=== PATIENT | female | born 1960 | race Caucasian/White ===

== ENCOUNTER 2016-04-23 07:49 | Emergency (ER) | payer OTHER ==
[2016-04-23 08:01] VITALS: BP 184/97
--- NOTE | 2016-04-23 08:21 | ERNOTE ---
Date of Service: 04/23/16 Time Seen by Provider: 04/23/16 08:08 Stated Complaint: PNEUMONIA Presenting Symptoms:: cough Source: patient Exam Limitations: no limitations Immunizations: IMMUNIZATION HX Immunizations Up to Date Yes History of Influenza Vaccine Yes Hx Pneumococcal Vaccination Yes Allergies/Adverse Reactions: Allergies amoxicillin Allergy (Intermediate, Verified 04/23/16 08:02) Hives Sulfa (Sulfonamide Antibiotics) Allergy (Intermediate, Verified 04/23/16 08:02) Hives acetaminophen [From Vicodin] Allergy (Mild, Verified 04/23/16 08:02) Hives codeine Allergy (Mild, Verified 04/23/16 08:02) RASH, NAUSEA hydrocodone bitartrate [From Vicodin] Allergy (Mild, Verified 04/23/16 08:02) Hives pseudoephedrine Allergy (Mild, Verified 04/23/16 08:02) Hives morphine Adverse Reaction (Mild, Verified 04/23/16 08:02) SEVERE VOMITING Opioids - Morphine Analogues Adverse Reaction (Mild, Verified 04/23/16 08:02) Vomiting Home Medications: HOME MEDICATIONS Azithromycin [Zithromax] 250 mg PO DAILY #6 tablet 04/23/16 [Last Taken Unknown] predniSONE [Prednisone] 3 tab PO DAILY #9 tab 04/23/16 [Last Taken Unknown] - History of Present Ilness Narrative: 55-year-old white female who is a smoker and has a history of asthma presents with cough. Patient has had a cough for a couple weeks. She has some occasional sputum production. Some mild shortness of breath. Increased wheezing. No fever chills. No chest pain. She's had some runny nose and congestion. Symptoms are worsening Review of Systems - Review of Systems Constitutional: Present: no symptoms reported, See HPI. Absent: weight loss EYE: Present: no symptoms reported ENT: Present: nose congestion, nasal drainage Respiratory: Present: See HPI Cardiology: Absent: chest pain, palpitations, edema Gastrointestinal/Abdominal: Present: no symptoms reported. Absent: nausea, vomiting Genitourinary: Present: no symptoms reported Musculoskeletal: Present: no symptoms reported Skin: Present: other - Patient's Past Medical History Patient History - Medical: No pertinent hx Patient History - Cardiac/Respiratory: Asthma, Hypertension Patient History - Cancer: No Hx of Cancer, Other Patient History - Surgical Procedures: Cholecystectomy, D & C, Tubal Ligation, T & A Patient History - Other: None, Other - Social History Living Situations: home Abuse History: No History of abuse Psych History: No pertinent hx Smoking Status: Current every day smoker Have you smoked in the past 12 months: Yes Alcohol Use: none Drug Use: marijuana - Immunizations Immunizations Up to Date: Yes Hx Pneumococcal Vaccination: Yes History of Influenza Vaccine: Yes Physical Exam - Physical Exam General Appearance: Present: wd/wn, alert, no apparent distress Ears, Nose, Throat: Present: normal ENT inspection, cerumen impaction Neck: Present: normal inspection, nontender, supple Respiratory: Present: no respiratory distress, normal breath sounds, no accessory muscle use, chest nontender, lungs clear. Absent: respiratory distress, accessory muscle use Cardiovascular/Chest: Present: regular rate, rhythm, no murmur, normal peripheral pulses Gastrointestinal/Abdominal: Present: nontender Extremity Exam: Present: normal inspection. Absent: pedal edema Neurological Exam: Present: alert, oriented, normal mood/affect, no motor/ sensory deficits Skin Exam: Present: normal color, warm/dry ED Progress - Vital Signs Patient's Vital Signs:: I have reviewed the patient's vital signs. Vital Signs: Vital Signs 04/23/16 07:55 Temperature 36.7 C Pulse Rate 64 Respiratory 16 Rate Blood Pressure 184/97 O2 Sat by Pulse 100 Oximetry - Progress/Reassessment Chief Complaint: Cough Departure - Departure Clinical Impression: Exacerbation of asthma Disposition: Home self-care Condition: Stable Instructions: Bronchospasm, Adult, Asthma, Adult, [id number] Additional Instructions: Stop Smoking Prescriptions: Azithromycin [Zithromax] 250 mg PO DAILY #6 tablet predniSONE [Prednisone] 3 tab PO DAILY #9 tab
--- OUTSIDE RECORDS SUMMARY | 2016-04-23 08:31 | XMS REPORT | Continuity of Care Document ---
:1960 Author Organization [facility] ([facility]) Address [place] [address] Phone [phone] Care Team Providers Name Role Phone Unavailable Primary Care Provider Unavailable Source Comments This disclosure is being made pursuant to the Care Everywhere program, applicable federal and state laws, and may not contain all informaitonavailable regarding this patient.[facility] ([facility]) Active Allergies and Adverse Reactions Allergen Noted Date Severity Reactions Comments Codeine Urticaria (Hives),Nausea & Vomiting Dust Unknown Grasses Unknown Meperidine Unknown Morphine Urticaria (Hives),Nausea & Vomiting Non-Med Soap Urticaria (Hives),Pruritus Opium Tincture Urticaria (Hives),Nausea & Vomiting Penicillins Urticaria (Hives),Nausea & Vomiting Pollen Rhinorrhea Pseudoephedrine Hcl 10/08/2014 Unknown Sulfadoxine Urticaria (Hives) flu symptoms Current Medications Prescription Sig. Disp. Refills Start Date End Date Status ibuprofen 200 mg tablet Take 200 mg by Active mouth every 8 hours as needed traMADol 50 mg tablet Take 50 mg by mouth Active 4 times daily as needed diclofenac PO Take by mouth daily Active clonazePAM 0.5 mg tablet Take 0.5 mg by Active mouth at bedtime Active Problems Problem Noted Date Suicidal ideation 01/03/2006 Other disorder of menstruation and other abnormal bleeding from female 2005 genital tract Social History Tobacco Use Types Packs/Day Years Used Date Current Every Day Smoker Cigarettes 0.5 40 Smokeless Tobacco: Never Used Tobacco Cessation:Counseling Given: Yes Comments: Alcohol Use Drinks/Week oz/Week Comments No Last Filed Vital Signs Vital Sign Reading Time Taken Blood Pressure 159/79 10/08/2014 11:00 AM CDT Pulse 58 10/08/2014 11:00 AM CDT Temperature 36.3 C (97.3 F) 10/08/2014 11:00 AM CDT Respiratory Rate 16 01/05/2006 8:00 AM [employer]IAN Height 1.588 m (5' 2.5") 10/08/2014 11:00 AM CDT Weight 55.4 kg (122 lb 2.2 oz) 10/08/2014 11:00 AM CDT Body Mass Index 21.97 10/08/2014 11:00 AM CDT Oxygen Saturation - - Plan of Care Health Maintenance Due Date Last Done Comments Hepatitis B Vaccine (1 of 3 - Primary 1958 Series) Tdap Vaccine 1969 Lipid Disorder Screening 1976 MMR Vaccine 1976 Td Vaccine 1976 Pneumococcal Vaccine (1 of 1 - PPSV23) 1977 Cervical Cancer Screening 1988 Mammogram 07/08/2007 07/07/2006 Colonoscopy 03/08/2013 03/08/2003 Influenza Vaccine: Seasonal (#1) 09/15/2015 HCV Screening Completed 03/01/2000, 10/29/1999 Results from Last 3 Months Not on file
== END 2016-04-23 08:31 | disposition home or self-care (01) ==
LOC: ER 07:49
DX: J45.901 Unspecified asthma with (acute) exacerbation (principal); F17.210 Nicotine dependence, cigarettes, uncomplicated